=== PATIENT | male | born 1980 | race Caucasian/White ===

== ENCOUNTER 2018-03-13 14:59 | Emergency (ER) | payer OTHER ==
[2018-03-13] MEDS: PERCOCET 5MG/325MG TAB PO (15:46)
== END 2018-03-13 16:19 | disposition home or self-care (01) ==
LOC: M ED 14:59
DX: S22.32XA Fracture of one rib, left side, initial encounter for closed fracture (principal); W22.8XXA Striking against or struck by other objects, initial encounter; Y92.89 Other specified places as the place of occurrence of the external cause; Y93.89 Activity, other specified
CPT/HCPCS: 71100

== ENCOUNTER → 2025-08-18 | Outpatient (CLI) | payer OTHER ==
[~2025-08-18] MED LIST: PERC5TAB12 PO
== END ==
LOC: M PLAIMG 13:33
PROVIDERS: ATTEND Physician Assistant
DX: R93.89 Abnormal findings on diagnostic imaging of other specified body structures (principal); R91.8 Other nonspecific abnormal finding of lung field